=== PATIENT | female | born 1955 | race Caucasian/White ===

== ENCOUNTER 2022-01-18 09:25 | Outpatient (REF) | payer BC, SELFPAY ==
--- NOTE | 2022-01-18 08:40 | LIPBX_PTH ---
PATIENT: Casandra Valente LOC: [facility] U#:[id number] AGE/SX: 66/F ROOM: RE01/18/[address]: Issac Giraldo DO : 1955 BED: DIS: 01/18/2022 SPEC #: [id number] RECD: 01/18/22 17:14 STATUS: LAQUITA REQ #: [id number] VENITA: 01/18/22 08:[address]: Issac Giraldo DEPT: Surgical Specimen RECD BY: Liza Gibson ENTERED: 01/18/22 17:15 SP TYPE: LIPBX OTHR DR: KECIA RICHARDS Tissues: 1 - LIP BIOPSY/RESECTION 2 - SKIN BIOPSY(SHAVE/PUNCH) Procedures: SKIN LEVEL 4 Comments: [id number]
--- OUTSIDE RECORDS SUMMARY | 2022-01-18 09:32 | XMS_ITS ---
:1955 Author Care Team Providers Name Role Phone DR. KECIA LU Primary Care Provider [phone] DR. KECIA LU Referring Provider [phone] KECIA LU DIRECTOR OCCUPATIONAL Primary Care Provider [phone] Allergies Code Code System Name Reaction Severity Status Onset Taxol Facial Swelling ? Active ? 06109 RxNorm Paclitaxel Dyspnea ? Deactivated ? Medications Name Status Start Date Stop Date ? ? cholecalciferol (vitamin D3) 25 mcg (1,000 unit) capsule Active ? Not available Take 1 capsule every day by oral route with meals for 90 days. fluticasone propionate 50 mcg/actuation nasal spray,suspension A ctive ? Not available [place] 1 spray every day by intranasal route. Notes: pt isn't taking any medications Problems Name Status Onset Date Source ? Malignant Tumor of Ovary Unknown 11/14/2021 ? Bronchitis Active 11/14/2021 ? Osteoarthritis Active 11/14/2021 ? Fracture of Sternum Unknown 11/14/2021 ? BRCA2 Gene Mutation Positive Active 11/14/2021 ? Malignant Tumor of Ovary Active 11/29/2021 ? Benign Neoplasm of Skin Unknown 11/29/2021 ? Allergic Rhinitis Active 11/29/2021 ? Solar Erythema Active 11/29/2021 ? Skin Tag Active 11/29/2021 ? Solar Lentigo Active 11/29/2021 ? Cervical Disc Disorder Active 11/29/2021 ? Cough Active 11/29/2021 ? Closed Fracture of Sternum Unknown 11/29/2021 ? History of Malignant Basal Cell Neoplasm of Skin Unknown 11/29/2021 ? History of Malignant Basal Cell Neoplasm of Skin Active 11/29/2021 ? History of Anemia Vitamin B12 Deficient Active 11/30/19 ? Ex-smoker Unknown 11/29/2021 ? Family History of Hyperlipidemia Active 11/29/2021 ? Body Mass Index 20-24 - Normal Active 11/29/2021 ? Menopause Active 11/29/2021 ? History of Gastritis Active 11/29/2021 ? History of Headache Active 11/29/2021 ? Pain of Left Shoulder Joint Active 11/29/2021 ? History of Herpes Zoster Unknown 11/29/2021 ? Primary Malignant Neoplasm of Right Ovary Active 2021 ? Osteoporosis Active 12/31/2021 ? Hyperlipidemia Active 01/04/2022 ? Well Adult Active 01/08/2022 ? Procedures Date Name Performed by ? 08/31/2008 Hysterectomy Information not zac anderson Notes: ovarian cancer ? Ligation of Fallopian Tube Information n ot available 11/14/2021 DEXA, Axial Skeleton [facility] - Radiology [address] [place] [id number] (Work Place) Results Lab Results Date Name Specimen Result Interpretation Description Value Range Status Address ? 01/04/2022 CBC W/ [id number] Normal Wbc 6.3 4.8-10.8 Final [facility] Auto Diff 10^3/mm^3 10^3/mm^3 [facility] Pathology: [address] [place] [address] ? ? [id number] Normal Rbc 4.64 3.90-5.03 [facility]^6/[facility]^3 10^6/mm^3 Hosp ital Laboratory & Pathology: [address] [place] [address] ? ? [id number] Normal Hgb 13.5 g/dL 12.0-15.5 Final [facility] g/dL [facility] Laboratory & Pathology: [address] [place] [address] ? ? [id number] Normal Hct 42 % 36-46 % Final [facility] Laboratory & Pathology: [address] [place] [address] ? ? [id number] Normal Mcv 90.1 fL 81.0-99.0 Final [facility] fL [facility] Laboratory & Pathology: [address] [place] [address] ? ? [id number] Normal Mch 29.1 pg 27.1-32.0 Final [facility] pg [facility] Laboratory & Pathology: [address] [place] [address] ? ? [id number] Low Mchc 32 g/dL 33-36 g/dL Final [facility] Laboratory & Pathology: [address] [place] [address] ? ? [id number] Normal Rdw 12.5 % 11.6-14.8 Final [facility] Pathology: [address] [place] [address] ? ? [id number] Normal Platele 195 150-400 Final [place] [facility] ts 10^3/mm^3 10^3/mm^3 Hosp ital Laboratory & Pathology: [address] [place] [address] ? ? [id number] Normal Ne# 4.02 1.20-6.70 Final [place] [facility] 10^3/mm^3 10^3/mm^3 Hosp ital Laboratory & Pathology: [address] [place] [address] ? ? [id number] Normal Ly# 1.77 1.20-3.40 Final [place] [facility] 10^3/mm^3 10^3/mm^3 Hosp ital Laboratory & Pathology: [address] [place] [address] ? ? [id number] Normal Mo# 0.36 0.11-0.70 Final [place] [facility] 10^3/mm^3 10^3/mm^3 Hosp ital Laboratory & Pathology: [address] [place] [address] ? ? [id number] Normal Eo# 0.06 0.00-0.70 Final [place] [facility] 10^3/mm^3 10^3/mm^3 Hosp ital Laboratory & Pathology: [address] [place] [address] ? ? [id number] Normal Ba# 0.03 0.00-0.20 Final [place] [facility] 10^3/mm^3 10^3/mm^3 Hosp ital Laboratory & Pathology: [address] [place] [address] ? ? [id number] Normal Neut% 64 % per 100 40-74 % Final [facility] WBC per 100 Hospital WBC Laboratory & Pathology: [address] [place] [address] ? ? [id number] Normal Ly% 28 % per 100 19-48 % Final [facility] WBC per 100 Hospital WBC Laboratory & Pathology: [address] [place] [address] ? ? [id number] Normal Mo% 5.8 % per 3.0-10.0 % Final [facility] 100 WBC per 100 Hospital WBC Laboratory & Pathology: [address] [place] [address] ? ? [id number] Normal Eo% 1.0 % per 1.0-7.0 % Final [facility] 100 WBC per 100 Hospital WBC Laboratory & Pathology: [address] [place] [address] ? ? [id number] Normal Ba% 0.5 % per 0.0-2.0 % Final [facility] 100 WBC per 100 Hospital WBC Laboratory & Pathology: [address] [place] [address] 01/04/2022 Lipid [id number] High Chol 259 mg/dL <200 mg/dL Zbigniew loco [facility] Serum Laboratory & Pathology: [address] [place] [address] ? ? [id number] High Hdl 84 mg/dL 40-60 Final [facility] mg/dL [facility] Laboratory & Pathology: [address] [place] [address] ? ? [id number] Normal Trig 74 mg/dL 30-150 Final [facility] mg/dL [facility] Laboratory & Pathology: [address] [place] [address] ? ? [id number] High LDL(C) 160 calc <100 calc Final [facility] Laboratory & Pathology: [address] [place] [address] ? ? [id number] ? Risk 3.1 calc ? Final [facility] Laboratory & Pathology: [address] [place] [address] 01/04/2022 CMP, [id number] Normal Na 142 mEq/L 136-[address] [facility] Serum or mEq/L [facility] Plasma Laboratory & Pathology: [address] [place] [address] ? ? [id number] Normal K 3.8 mEq/L 3.5-5.1 Final [facility] mEq/L [facility] Laboratory & Pathology: [address] [place] [address] ? ? [id number] Normal Cl 104 mEq/L 98-107 Final [facility] age mEq/L [facility] Laboratory & Pathology: [address] [place] [address] ? ? [id number] Normal Co2 23 mEq/L 21-31 Final [facility] ge mEq/L [facility] Laboratory & Pathology: [address] [place] [address] ? ? [id number] ? Agap 19.0 ? Final [facility] calculation Hospi christi Laboratory & Pathology: [address] [place] [address] ? ? [id number] Normal Glu 83 mg/dL 70-100 Final [facility] mg/dL [facility] Laboratory & Pathology: [address] [place] [address] ? ? [id number] Normal Bun 12 mg/dL 7-18 mg/dL Final [facility] Laboratory & Pathology: [address] [place] [address] ? ? [id number] Normal Creat 0.88 mg/dL 0.55-1.[address] [facility] mg/dL [facility] Laboratory & Pathology: [address] [place] [address] ? ? [id number] ? Bn/cr 13.2 ratio ? Final [facility] Laboratory & Pathology: [address] [place] [address] ? ? [id number] Normal Ca 9.2 mg/dL 8.5-10.1 Final [facility] mg/dL [facility] Laboratory & Pathology: [address] [place] [address] ? ? [id number] Normal Alkp 90 U/L 50-130 U/L Final [facility] Laboratory & Pathology: [address] [place] [address] ? ? [id number] Normal Alt 17 U/L 14-59 U/L Final [facility] Laboratory & Pathology: [address] [place] [address] ? ? [id number] Normal Ast 20 U/L 15-37 U/L Final [facility] Laboratory & Pathology: [address] [place] [address] ? ? [id number] Normal Tbil 0.9 mg/dL <=1.2 Final [facility]/dL [facility] Laboratory & Pathology: [address] [place] [address] ? ? [id number] Normal Tp 7.2 g/dL 6.4-8.2 Final [facility] g/dL [facility] Laboratory & Pathology: [address] [place] [address] ? ? [id number] Normal Alb 4.2 g/dL 3.4-5.0 Final [facility] g/dL [facility] Laboratory & Pathology: [address] [place] [address] ? ? [id number] ? Glob 3.00 mg/dL ? Final [facility] Laboratory & Pathology: [address] [place] [address] ? ? [id number] ? A/g 1.4 calc ? Final [facility] Laboratory & Pathology: [address] [place] [address] ? ? [id number] ? Egfraa 78.41 ? Final [facility] Laboratory & Pathology: [address] [place] [address] ? ? [id number] ? Egfrnaa 64.69 ? Final [facility] Laboratory & Pathology: [address] [place] [address] 01/04/2022 TSH, [id number] Normal Tsh 2.293 mIU/mL 0.360-3.[address] [facility] Serum or 0 mIU/mL Hospit al Plasma Laboratory & Pathology: [address] [place] [address] 01/04/2022 Vitamin [id number] Normal Vitd 49.60 NG/mL >30.00 Debra l [facility] D2, NG/mL Hospital 25-Hydrox Laborat ory y, Serum & Pathology: [address] [place] [address] 01/04/2022 HbA1C WB Normal A1C 5.3 % <5.7 % Final [facility] (Hemoglob Hospita l in a1C), Laborato ry Blood & Pathology: [address] [place] [address] ? ? WB Normal [place] 105 calc <140 calc Final Cot [facility] Laboratory & Pathology: [address] [place] [address] 01/04/2022 Hepatitis [id number] Normal HCV Ab <0.1 s/co 0.0-0.9 Fi nal Nneka C Ab, ratio s/co ratio Hospit al Qual, [place], Laborat ory Serum or & Plasma Pathology: [address] [place] [address] ? ? [id number] ? Interpr comment ? Final Cott age etation: Hospital Laboratory & Pathology: [address] [place] [address] 01/04/2022 PTH [id number] Normal PTH, 25 pg/mL 15-65 Final [facility] (Parathyr Intact pg/mL Hospita l oid Laboratory Hormone), & Intact, Pathology : Serum or 90 Plasma [facility] Past Encounters 11/14/2021 Menopause; Seen in Primary Care [facility]; Basal Cell Carcinoma of Skin; Long-term Drug Therapy; Hepatitis C Screening Kecia Lu, DIRECTOR OCCUPATIONAL: [address] [place] [address], Ph. [phone] Social History Tobacco Smoking Status Former Smoker Vaccine List Vaccine Type COVID-19, mRNA, LNP-S, PF, 100 mcg/0.5 m L dose (Moderna) 06/14/2020 07/12/2020 02/09/2021 10/23/2021 influenza, injectable, quadrivalent 01/01/2018 Tdap 10/27/2014 TST-PPD intradermal 03/15/2014?0.1 mL Notes: Td/DT on 10/28/2003 and 006 Plan of Care Patient Instructions Continue the same medication(s) and robert l if you have any questions or concerns. Reminders Provider Appointments None recorded. ? ? Lab None recorded. ? ? Referral None recorded. ? ? Procedures None recorded. ? ? Surgeries None recorded. ? ? Imaging None recorded. ? ? Vitals Height Weight BMI Blood Pressure 154.94 cm 59.51 kg 24.8 kg/m2 110/64 mm[Hg]
--- OUTSIDE RECORDS SUMMARY | 2022-01-18 09:32 | XMS_ITS | Encounter Summary ---
:1955 Author Care Team Providers Name Role Phone Dr. Ortega Lu Primary Care Provider [phone] Ortega Lu APRN Primary Care Provider [phone] Dr. Ortega Lu Referring Provider [phone] Reason for Visit new pt Assessment and Plan Assessment Note 41 minutes spent obtaining and/or review ing separately obtained history, performing a medically necessary appropriate examination and/or evaluation, counseling and educating the patient. After reviewing assessment and recommendations, includi ng risks, benefits and alternative treatment options, Pt. verbalized an understanding and she agreed with this plan. 1. Menopause Pt is menopausal and would like to proc eed with a DEXA scan to r/o osteoporosis. Hx of Sternal Fx and 2weeks later another F x. Hx of Chemo. ? DEXA, axial skeleton - SCREENING FOR OSTEOPOROSIS , MENOPAUSE 2. Seen in primary care establishment Will get baseline blood work prior to h er physical. ? lipid panel, serum ? CMP, serum or plasma ? CBC w/ auto diff ? TSH, serum or plasma ? vitamin D, 25-hydroxy, total, serum 3. Basal cell carcinoma of skin Reports Hx of Basal cell skin cancer re moval in the past. Does not wear sun protection. Would like to establish with Dermatology for yearly Full body checks which I think is reasonable. Advised her to wear suncreen regularly and wear protective clothing when in direct sunli ght for more than 15 min. ? landscape drafter referral - Full body ch amalia-Hx of Basal cell Carcinoma 4. Long-term drug therapy Baseline blood work for estb. She has a Hx of chemotherapy for about 6months. ? HbA1c (hemoglobin A1c), blood 5. Hepatitis C screening Agreeable to screening ? hepatitis C Ab, qual, IA, serum or pl asma Discussion Note: None recorded.Patient educational handouts: No information available. Plan of Care Patient Instructions Continue the same medication(s) and robert l if you have any questions or concerns. Reminders Provider Appointments Annual Exam 05/14/2022 Ortega Nascimento er, SPEECH WRITER 7:30AM Lab Lipid Panel, Serum 11/14/2021 [facility] (Respiratory Dilia eduling) ? CMP, Serum or Plasma 11/14/2021 [facility] ospital (Respiratory Dilia eduling) ? CBC W/ Auto Diff 11/14/2021 [facility] (Respiratory Dilia eduling) ? TSH, Serum or Plasma 11/14/2021 [facility] ospital (Respiratory Dilia eduling) ? HbA1C (Hemoglobin a1C), 11/14/2021 [facility] Blood (Respiratory Dilia eduling) ? Vitamin D, 25-Hydroxy, 11/14/2021 [facility] Total, Serum (Respiratory Dilia eduling) ? Hepatitis C Ab, Qual, IA, 11/14/2021 [facility] Serum or Plasma (Respiratory Dilia eduling) Referral Figure Model Referral 11/14/2021 [facility] Dermatology Procedures None recorded. ? ? Surgeries None recorded. ? ? Imaging DEXA, Axial Skeleton 11/14/2021 [facility] Medications Name Start Date ? ? cholecalciferol (vitamin D3) 25 mcg (1,000 unit) capsu le ? Take 1 capsule every day by oral route with meals for 90 days. fluticasone propionate 50 mcg/actuation nasal spray,briggs spension ? Cato 1 spray every day by intranasal route. Notes: pt isn't taking any medications Medications Administered None recorded. Vitals Height Weight BMI Blood Pressure 5 ft 1 in 131.2 lbs 24.8 kg/m2 110/64 mm[Hg] Results Lab Results Date Name Specimen Result Interpretation Description Value Range Status Address ? 01/04/2022 CBC W/ [id number] Normal Wbc 6.3 4.8-10.8 Final [facility] Auto Diff 10^3/mm^3 10^3/mm^3 H ospital Laboratory & Pathology: [address] [place] [address] ? ? [id number] Normal Rbc 4.64 3.90-5.03 Final [facility] ge 10^6/mm^3 10^6/mm^3 Hosp ital Laboratory & Pathology: [address] [place] [address] ? ? [id number] Normal Hgb 13.5 g/dL 12.0-15.5 Final [facility] g/dL Hospital Laboratory & Pathology: [address] [place] [address] ? ? [id number] Normal Hct 42 % 36-46 % Final [facility] Laboratory & Pathology: [address] [place] [address] ? ? [id number] Normal Mcv 90.1 fL 81.0-99.0 Final [facility] age fL [facility] Laboratory & Pathology: [address] [place] [address] ? ? [id number] Normal Mch 29.1 pg 27.1-32.0 Final [facility] pg Hospital Laboratory & Pathology: [address] [place] [address] ? ? [id number] Low Mchc 32 g/dL 33-36 g/dL Final Cot t[facility] Laboratory & Pathology: [address] [place] [address] ? ? [id number] Normal Rdw 12.5 % 11.6-14.8 Final [facility] Laboratory & Pathology: [address] [place] [address] ? ? [id number] Normal Platele 195 150-400 Final [facility] ts 10^3/mm^3 10^3/mm^3 Hosp ital Laboratory & Pathology: [address] [place] [address] ? ? [id number] Normal Ne# 4.02 1.20-6.70 Final [facility] 10^3/mm^3 10^3/mm^3 Hosp ital Laboratory & Pathology: [address] [place] [address] ? ? [id number] Normal Ly# 1.77 1.20-3.40 Final [facility] 10^3/mm^3 10^3/mm^3 Hosp ital Laboratory & Pathology: [address] [place] [address] ? ? [id number] Normal Mo# 0.36 0.11-0.70 Final [facility] 10^3/mm^3 10^3/mm^3 Hosp ital Laboratory & Pathology: [address] [place] [address] ? ? [id number] Normal Eo# 0.06 0.00-0.70 Final [facility] 10^3/mm^3 10^3/mm^3 Hosp ital Laboratory & Pathology: [address] [place] [address] ? ? [id number] Normal Ba# 0.03 0.00-0.20 Final [facility] 10^3/mm^3 10^3/mm^3 Hosp ital Laboratory & Pathology: [address] [place] [address] ? ? [id number] Normal Neut% 64 % per 100 40-74 % Final [facility] WBC per 100 Hospital WBC Laboratory & Pathology: [address] [place] [address] ? ? [id number] Normal Ly% 28 % per 100 19-48 % Final [facility] WBC per 100 Hospital WBC Laboratory & Pathology: [address] [place] [address] ? ? [id number] Normal Mo% 5.8 % per 3.0-10.0 % Final C [facility] 100 WBC per 100 Hospital WBC Laboratory & Pathology: [address] [place] [address] ? ? [id number] Normal Eo% 1.0 % per 1.0-7.0 % Final [facility] 100 WBC per 100 Hospital WBC Laboratory & Pathology: [address] [place] [address] ? ? [id number] Normal Ba% 0.5 % per 0.0-2.0 % Final [facility] 100 WBC per 100 Hospital WBC Laboratory & Pathology: [address] [place] [address] 01/04/2022 Lipid [id number] High Chol 259 mg/dL <200 mg/dL [facility] Pathology: [address] [place] [address] ? ? [id number] High Hdl 84 mg/dL 40-60 [facility] Laboratory & Pathology: [address] [place] [address] ? ? [id number] Normal Trig 74 mg/dL 30-150 [facility] Laboratory & Pathology: [address] [place] [address] ? ? [id number] High LDL(C) 160 calc <[address] [facility] Laboratory & Pathology: [address] [place] [address] ? ? [id number] ? Risk 3.1 calc ? Final [facility] Laboratory & Pathology: [address] [place] [address] 01/04/2022 CMP, [id number] Normal Na 142 mEq/L 136-145 Final [facility] Serum or mEq/L [facility] Plasma Laboratory & Pathology: [address] [place] [address] ? ? [id number] Normal K 3.8 mEq/L 3.5-5.1 Final [facility] mEq/L [facility] Laboratory & Pathology: [address] [place] [address] ? ? [id number] Normal Cl 104 mEq/L 98-107 Final [facility] age mEq/L [facility] Laboratory & Pathology: [address] [place] [address] ? ? [id number] Normal Co2 23 mEq/L 21-31 Final [facility] ge mEq/L [facility] Laboratory & Pathology: [address] [place] [address] ? ? [id number] ? Agap 19.0 ? Final [facility] calculation Hospi christi Laboratory & Pathology: [address] [place] [address] ? ? [id number] Normal Glu 83 mg/dL 70-100 Final [facility] ge mg/dL [facility] Laboratory & Pathology: [address] [place] [address] ? ? [id number] Normal Bun 12 mg/dL 7-18 mg/dL Final [facility] Laboratory & Pathology: [address] [place] [address] ? ? [id number] Normal Creat 0.88 mg/dL 0.55-1.02 Final [facility] mg/dL [facility] Laboratory & Pathology: [address] [place] [address] ? ? [id number] ? Bn/cr 13.2 ratio ? Final [facility] Laboratory & Pathology: [address] [place] [address] ? ? [id number] Normal Ca 9.2 mg/dL 8.5-10.1 Final [facility] mg/dL Hospital Laboratory & Pathology: [address] [place] [address] ? ? [id number] Normal Alkp 90 U/L 50-130 U/L Final [facility] Laboratory & Pathology: [address] [place] [address] ? ? [id number] Normal Alt 17 U/L 14-59 U/L Final [facility] Laboratory & Pathology: [address] [place] [address] ? ? [id number] Normal Ast 20 U/L 15-37 U/L Final [facility] Laboratory & Pathology: [address] [place] [address] ? ? [id number] Normal Tbil 0.9 mg/dL <=1.2 Final [facility] mg/dL [facility] Laboratory & Pathology: [address] [place] [address] ? ? [id number] Normal Tp 7.2 g/dL 6.4-8.2 Final [facility] g/dL [facility] Laboratory & Pathology: [address] [place] [address] ? ? [id number] Normal Alb 4.2 g/dL 3.4-5.0 Final [facility] g/dL [facility] Laboratory & Pathology: [address] [place] [address] ? ? [id number] ? Glob 3.00 mg/dL ? Final [facility] Laboratory & Pathology: [address] [place] [address] ? ? [id number] ? A/g 1.4 calc ? Final [facility] Laboratory & Pathology: [address] [place] [address] ? ? [id number] ? Egfraa 78.41 ? Final [facility] Laboratory & Pathology: [address] [place] [address] ? ? [id number] ? Egfrnaa 64.69 ? Final [facility] Laboratory & Pathology: [address] [place] [address] 01/04/2022 TSH, [id number] Normal Tsh 2.293 mIU/mL 0.360-3.74 Final [facility] Serum or 0 mIU/mL Hospit al Plasma Laboratory & Pathology: [address] [place] [address] 01/04/2022 HbA1C WB Normal A1C 5.3 % <5.7 % Final [facility] e (Hemoglob Hospita l in a1C), [place] Blood & Pathology: [address] [place] [address] ? ? WB Normal [address] calc <140 calc Final [facility] Laboratory & Pathology: [address] [place] [address] 01/04/2022 Hepatitis [id number] Normal HCV Ab <0.1 s/co 0.0-0.9 Fi nal [facility] C Ab, ratio s/co ratio Hospit al Qual, [place], Laborat ory Serum or & Plasma Pathology: [address] [place] [address] ? ? [id number] ? Interpr comment ? Final [facility] age etation: Hospital Laboratory & Pathology: [address] [place] [address] Allergies Code Code System Name Reaction Severity Onset Taxol Facial Swelling ? ? Problems Name Status Onset Date Source ? Bronchitis Active 11/14/2021 ? Osteoarthritis Active 11/14/2021 ? BRCA2 Gene Mutation Positive Active 11/14/2021 ? Malignant Tumor of Ovary Active 11/29/2021 ? Allergic Rhinitis Active 11/29/2021 ? Solar Erythema Active 11/29/2021 ? Skin Tag Active 11/29/2021 ? Solar Lentigo Active 11/29/2021 ? Cervical Disc Disorder Active 11/29/2021 ? Cough Active 11/29/2021 ? History of Malignant Basal Cell Neoplasm of Skin Active 11/29/2021 ? History of Anemia Vitamin B12 Deficient Active 11/30/19 22 ? Family History of Hyperlipidemia Active 11/29/2021 ? Body Mass Index 20-24 - Normal Active 11/29/2021 ? Menopause Active 11/29/2021 ? History of Gastritis Active 11/29/2021 ? History of Headache Active 11/29/2021 ? Pain of Left Shoulder Joint Active 11/29/2021 ? Primary Malignant Neoplasm of Right Ovary Active 2021 ? Osteoporosis Active 12/31/2021 ? Hyperlipidemia Active 01/04/2022 ? Well Adult Active 01/08/2022 ? Procedures Date Name Performed by ? 08/31/2008 Hysterectomy Information not avai lable Notes: ovarian cancer ? Ligation of Fallopian Tube Information n ot available 11/14/2021 DEXA, Axial Skeleton [facility] - Radiology [address] [place] [id number] (Work Place) Vaccine List Vaccine Type COVID-19, mRNA, LNP-S, PF, 100 mcg/0.5 m L dose (Moderna) 06/14/2020 07/12/2020 02/09/2021 10/23/2021 influenza, injectable, quadrivalent 01/01/2018 Tdap 10/27/2014 TST-PPD intradermal 03/15/2014?0.1 mL Notes: Td/DT on 10/28/2003 and 006 Social History Tobacco Smoking Status Former Smoker Do you have difficulty walking or N climbing stairs? Have you received the covid vaccine this N year? (If so, document vaccination in Vaccine Module in [place]) Are you able to walk? YESWOREST Are you able to care for yourself? Y Are you blind or do you have difficulty N seeing? Are you currently waiting on results of a N COVID-19 test? Do you have transportation difficulties? N What is your code status? 0 Are you isolating or quarantining because N you may have been exposed to a person with COVID-19 or are worried that you may be sick with COVID-19? When did you quit smoking? 6-10yearssincelastcigarette Note s: 2008 What is your level of alcohol Occasional consumption? Have you travelled outside of [place] N in the past 14 days? Have you experienced any of the following N symptoms in the past 48 hours? Fever/Chills, Cough, Shortness of breath or difficulty breathing, fatigue, muscle or body aches, headache, new loss of taste or smell, sore throat, congestion or runny nose, nausea or vomiting and/or diarrhea Have you had any vaccines in the last N month or do you have any vaccines scheduled? Within the past 14 days, have you been in N close physical contact (6 feet or closer for a cumulative total of 15 minutes) with anyone that is known to have laboratory-confirmed COVID-19? OR Anyone who has any symptoms consistent with COVID-19? Are you deaf or do you have serious N difficulty hearing? Do you have difficulty concentrating, N remembering or making decisions? Are you passively exposed to smoke? N Do you have difficulty dressing or N bathing? Family History Relation Problem Onset Age of Age Notes Mother Family history of (No N/A (No Notes) breast cancer Information) Mother Family history of (No N/A (No Notes) Migraine Information) Unspecified Relation Family history of (No N/A (N o Notes) diabetes mellitus Information) Unspecified Relation Family history of (No N/A (N o Notes) complete trisomy 21 Information) syndrome Brother Family history of (No N/A (No Notes) Hypertension Information) Maternal Grandmother Family history of (No N/A (N o Notes) malignant neoplasm of Information) ovary Sister Family history of (No N/A (No Notes) Migraine Information) Functional Status No Impairment. Past Encounters 11/14/2021 Menopause; Seen in Primary Care [facility]; Basal Cell Carcinoma of Skin; Long-term Drug Therapy; Hepatitis C Screening Ortega Lu, SPEECH WRITER: [address] [place] [address], Ph. 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 Info seems {{reliable* not reliable}}.</div><div>Were there any discrepancies? {{No* Yes}}. If yes, then list-n/a </div><div>Medications completed due to end of course if any -n/a </div><div>Have you been seen by another provider, had an ER visit or hospit alization in the last 6-12months- </div><div>Urgent care care for tooth pain [place] August/ Oct </div><div>And have any Medications been added, stopped or adjusted since last visit?</div><div>phq2/9- 0</div><div>Provider HPI </div><div>
</div><div>[facility] Unfortunately I have no records to review. Patient reports she will be traveling this week and will try to stop by and get her medical records from previous provider.</div><div>In 2008 she reports she had ovarian cancer and had chemo for 6 months. She had an allergic reaction to the Chemo and had to be hospitalized and desensitized for all her other chemo treatments for about 12 hours each treatment. She reports she had some paresthesia initially in her fingers and toes but this resolved after a few months and she no longer has these issues.</div><div>She reports she last saw a PCP in May of 2020.</div><div>She reports she had a bad fall that resulted in a sternal fracture while using a Pogo stick she found in her father's garage afterhis and again 2 weeks later when she attempted to ride her granddaughters hover board. She hashealed from these injuries that occured over a year ago but does get some aching in her sternum whenshe is active with her arms. She takes Ibuprofen 400mg which dulls her pain to a tolerable level.</div><div>Reports she fell after being on pogo stick and a hover board.</div><div&g t;
</div><div>BRACA gene positive with family Hx of Breast cancer she see&#3 9;s oncology at [facility] for and reports she had a MMG about a month ago. She also reports she has a History of Basal cell skin cancer and wishes to establish with a Figure Model so she can continue with yearly full body checks.</div><div>Plans on continuing with [facility] for routine checks and her MMG with her oncologist.</div><div>
</div><div>She reports no new problems or concerns at this time. She says she is healthy and other than listed above has no health history and she takes no medications or supplements. She is not interested in having a physical in the very near future but is agreeable to 6months.</div>Review of Systems: ROS as noted in the HPI Review of Systems None recorded. Physical Exam ? General Adult Exam, CH Gener al Adult Exam Reported By: Patient Constitutional: General Appearance: healthy- appearing, well-nourished, well-developed. Level of Dis tress: NAD. Ambulation: ambulating normally Psychiatric: Mental Status: active and al ert. Orientation: to time, to place, to person Head: Head: normocephalic, atrauma tic Eyes: Lids and Conjunctivae: non-i njected. EOM: EOMI. Sclerae: non-icteric Neck: Neck: supple Lungs: Respiratory effort: no dyspn ea. Auscultation: breath sounds normal, good air movement Cardiovascular: Heart Auscultation: RRR, nor mal S1, normal S2, no murmurs. Neck vessels: no carotid bruits. Pulses including femoral / pedal: normal throughout Abdomen: Bowel Sounds: normal. Inspec tion and Palpation: soft, non-distended Musculoskeletal:: Motor Strength and Tone: nor mal. Joints, Bones, and Muscles: normal movement of all extremities Back: Thoracolumbar Appearance: no rmal curvature
--- OUTSIDE RECORDS SUMMARY | 2022-01-18 09:32 | XMS_ITS | Clinical Summary ---
:1955 Author Organization [facility] Address [place] [id number] Care Team Providers Name Role Phone Unavailable Primary Care Provider Unavailable Encounters Date Type Specialty Care Team Description 12/28/2021 Interpretation Only Kecia Lu APRN from Last 3 Months Social History Tobacco Use Types Packs/Day Years Used Date Smoking Tobacco: Never Assessed Sex Assigned at Date Recorded Not on file Plan of Treatment Health Maintenance Due Date Last Done Comments Covid-19 Vaccine (#1) 02/26/1956 HIV screen 08/28/1975 Hepatitis C Screening 08/28/1975 Tdap adult 1976 Tetanus vaccine 1976 HPV test 08/28/1987 PAP Smear 08/28/1987 Breast Cancer Share Decision Needed 1997 Colonoscopy 2002 Breast Cancer screening 08/28/2007 Zoster vaccine (1 of 2) 08/28/2007 Advance Directive 2012 Influenza (Flu) vaccine (1 of 1 - Influenza standard 11/01/2021 series) Procedures Procedure Name Priority Date/Time Associated Diagnosis Comme nts DXA CENTRAL SPINE, Routine 12/28/2021 10:41 AM Re sults for this HIP, AND/OR WHOLE EDT procedure are in BODY (GENERIC) the results section. from Last 3 Months Results DXA Central Spine, Hip, and/or Whole Body (Generic) (12/28/2021 10:41 AM EDT) P athologist Signature PT CLASS O RAD ADMITDTTM RAD PT RAD MD INFO [id number] RAD AGNER^KECIA^ ELOY EXAM DESC XDXAC^DEXA RAD SCAN AXIAL^RIS Anatomical Region Laterality Modality C-spine, Hip N/A Radiographic Imaging Specimen (Source) Anatomical Location Collection Method / Collectio n Time Received Time / Laterality Volume Impressions 12/28/2021 2:01 PM EDT Osteoporosis. FRAX ten-year fracture risk: Major osteoporotic fracture: 12%. Hip fracture: 2.2%. Thank you for letting us participate in the care of this patient. ??If you are a health care provider and have any questi ons regarding this report, please contact the number below. ??For patients who have questions please contact the health point of care technician that requested your imaging first. ? Narrative 12/28/2021 2:01 PM EDT EXAMINATION: DEXA SCAN AXIAL CLINICAL HISTORY: Asymptomatic menopausa l state, ??SCREENING FOR OSTEOPOROSIS , MENOPAUSE TECHNIQUE: Scans were acquired at the [place] mbar spine, left hip. COMPARISON: None. FINDINGS: Lowest T score at a diagnostic region of interest: T score: -3.5, KATIE:Total spine, WHO diag nosis: Osteoporosis Procedure Note Alden Franklin MD - 12/28/2021For matting of this note might be different from the original. EXAMINATION: DEXA SCAN AXIAL CLINICAL HISTORY: Asymptomatic menopausa l state, SCREENING FOR OSTEOPOROSIS , MENOPAUSE TECHNIQUE: Scans were acquired at the [place] mbar spine, left hip. COMPARISON: None. FINDINGS: Lowest T score at a diagnostic region of interest: T score: -3.5, KATIE:Total spine, WHO diag nosis: Osteoporosis IMPRESSION Osteoporosis. FRAX ten-year fracture risk: Major osteoporotic fracture: 12%. Hip fracture: 2.2%. Thank you for letting us participate in the care of this patient. If you are a health care provider and have any questi ons regarding this report, please contact the number below. For patients w ho have questions please contact the health point of care technician that requested your imaging first. Kecia Lu APRN IMG DEXA ORDERABLES from Last 3 Months
--- OUTSIDE RECORDS SUMMARY | 2022-01-18 09:32 | XMS_ITS | Encounter Summary ---
:1955 Author Organization [place] [address] Care Team Providers Name Role Phone Unavailable Primary Care Provider Unavailable Encounter Details Date Type Department Care Team Description 12/28/[address] [facility] Kecia Lu, BATTING MACHINE OPERATOR INSULATION [address] [facility] [address] [place], [place] [id number] [phone] Social History Tobacco Use Types Packs/Day Years Used Date Smoking Tobacco: Never Assessed Sex Assigned at Date Recorded Not on file documented as of this encounter Plan of Treatment Not on filedocumented as of this encounter Procedures Procedure Name Priority Date/Time Associated Diagnosis Comme nts DXA CENTRAL SPINE, Routine 12/28/2021 10:41 AM Re sults for this HIP, AND/OR WHOLE EDT procedure are in BODY (GENERIC) the results section. documented in this encounter Results DXA Central Spine, Hip, and/or Whole Body (Generic) (12/28/2021 10:41 AM EDT) P athologist Signature PT CLASS O RAD ADMITDTTM RAD PT RAD MD INFO [id number]^W RAD AGNER^KECIA^ ELOY EXAM DESC XDXAC^DEXA RAD [...] who have questions please contact the health care information associate that requested your imaging first. ? Electronically signed by: Alden myers MD, [facility] ([phone]), at 12/28/2021 2:01 PM Narrative 12/28/2021 2:01 PM EDT EXAMINATION: DEXA [...] ho have questions please contact the health care information associate that requested your imaging first. Electronically signed by: Alden myers MD, [facility] ([phone]), at 12/28/2021 2:01 PM Kecia Lu APRN IMG DEXA ORDERABLES documented in this encounter Visit Diagnoses Not on filedocumented in this encounter
== END 2022-01-18 09:26 | disposition home or self-care (01) ==
LOC: LBN 09:25
PROVIDERS: PCP Nurse Practitioner Primary Care; Visit Provider Otolaryngology Otolaryngology/Facial Plastic Surgery
DX: L57.0 Actinic keratosis (principal); L81.4 Other melanin hyperpigmentation
CPT/HCPCS: 88305